=== PATIENT | male | born 1965 | race African-American/Black ===

== ENCOUNTER 2020-04-09 17:12 | Observation (INO) ==
[2020-04-09] MEDS ORDERED: ASPIRIN 325 MG TABLET PO STA (18:27)
[2020-04-09] MEDS ORDERED: METOPROLOL TARTRATE 25 MG TABLET PO STA (18:27)
[2020-04-09 18:45] LABS: Basophils # 0.1 10*3/uL (0.0-0.2); Basophils % 0.7 % (0.0-0.8); Eosinophils # 0.1 10*3/uL (0.0-0.87); Eosinophils % 1.7 % (0.00-10.9); Hematocrit 41.1 VOL% (42.0-52.0); Hemoglobin 13.2 GM/DL (14.0-18.0); Immature Granulocytes % 0.4 %; Immature Granulocytes Absolute 0.03 #; Lymphocytes # 1.5 10*3/uL (1.4-4.0); Lymphocytes % 18.4 % (21.2-54.2); Mean Corpuscular HGB Conc 32.1 GM/DL (32-36); Mean Corpuscular Volume 83.2 FL (87-102); Mean Platelet Volume 9.4 FL (9.6-12.0); Monocytes % 11.4 % (1.7-12.7); Neutrophils % 67.4 % (38.7-73.9); PT Patient Result 11.1 SECS (9.8-11.9); Platelet Count 370 T/CUMM (130-400); Red Blood Count 4.94 MC/CUMM (3.8-5.5); Red Cell Distribution Width 17.1 % (9.3-17.3); White Blood Count 8.4 T/CUMM (4-12)
[2020-04-09 18:53] LABS: Albumin 3.1 G/DL (3.4-5.0); Bilirubin,Total 0.4 MG/DL (0.2-1.0); Calcium 8.7 MG/DL (8.5-10.1); Osmolality,Calculated 290.7 MOS/KG (273-304); Potassium 4.1 MMOL/L (3.5-5.1); Total Protein 6.3 G/DL (6.4-8.3)
[2020-04-09] MEDS ORDERED: ONDANSETRON 4 MG/2 ML VIAL IV PRN (19:59)
[2020-04-09] MEDS ORDERED: ACETAMINOPHEN 325 MG TABLET PO PRN (19:59)
[2020-04-09] MEDS ORDERED: SODIUM CHLORIDE 0.9% 1,000 ML IV SCH (20:00)
[2020-04-09] MEDS ORDERED: ENOXAPARIN 40 MG/0.4 ML SYRINGE SUBCUT SCH (21:00)
[2020-04-09] MEDS: FERROUS SULFATE 325 MG TABLET PO SCH (23:14)
[2020-04-09] MEDS: GABAPENTIN 600 MG TABLET PO SCH (23:14)
[2020-04-09] MEDS: tiZANidine 4 MG TABLET PO SCH (23:15)
[2020-04-10 06:18] LABS: Calcium 8.8 MG/DL (8.5-10.1); Osmolality,Calculated 283.3 MOS/KG (273-304); Potassium 4.2 MMOL/L (3.5-5.1)
[2020-04-10 06:26] LABS: Protein/Creatinine Ratio,Urine 0.1 RATIO
[2020-04-10] MEDS ORDERED: POTASSIUM CHLORIDE 10 MEQ TABLET PO SCH (09:00)
[2020-04-10] MEDS ORDERED: ASCORBIC ACID 500 MG TABLET PO SCH (09:00)
[2020-04-10] MEDS ORDERED: PANTOPRAZOLE 40 MG TABLET PO SCH (09:00)
[2020-04-10] MEDS ORDERED: METOPROLOL TARTRATE 25 MG TABLET PO SCH (09:00)
[2020-04-10] MEDS ORDERED: allopurinoL 100 MG TABLET PO SCH (09:00)
[2020-04-10] MEDS ORDERED: CHOLECALCIFEROL 5,000 UNIT TABLET PO SCH (09:00)
[2020-04-10] MEDS ORDERED: MAGNESIUM OXIDE 400 MG TABLET PO SCH (09:00)
[2020-04-10] MEDS: tiZANidine 4 MG TABLET PO SCH (10:09)
[2020-04-10] MEDS: GABAPENTIN 600 MG TABLET PO SCH (10:11)
[2020-04-10] MEDS: FERROUS SULFATE 325 MG TABLET PO SCH (10:11)
[2020-04-10 12:17] VITALS: BP 107/58
[2020-04-10] MEDS ORDERED: RIVAROXABAN 20 MG TABLET PO SCH (17:00)
== END 2020-04-10 16:06 | disposition home or self-care (01) ==
LOC: EDUNIT# → EDBD → N.ED 17:12 → N.EDINP 17:12 → N.TELEN 04-10 08:34
PROVIDERS: ADMIT Internal Medicine; ATTEND Internal Medicine

== ENCOUNTER 2020-10-23 11:52 | Observation (INO) ==
[2020-10-23] MEDS ORDERED: ADENOSINE 6 MG/2 ML VIAL ONE ×2 (12:11→12:15)
[2020-10-23 12:21] LABS: Basophils # 0.1 10*3/uL (0.0-0.2); Basophils % 1.1 % (0.0-0.8); Eosinophils # 0.1 10*3/uL (0.0-0.87); Eosinophils % 1.9 % (0.00-10.9); Hematocrit 46.4 VOL% (42.0-52.0); Hemoglobin 15.3 GM/DL (14.0-18.0); Immature Granulocytes % 0.1 %; Immature Granulocytes Absolute 0.01 #; Lymphocytes # 1.6 10*3/uL (1.4-4.0); Lymphocytes % 23.1 % (21.2-54.2); Mean Corpuscular Volume 84.7 FL (87-102); Mean Platelet Volume 9.6 FL (9.6-12.0); Monocytes % 12.6 % (1.7-12.7); Neutrophils % 61.2 % (38.7-73.9); Platelet Count 381 T/CUMM (130-400); Red Blood Count 5.48 MC/CUMM (3.8-5.5); Red Cell Distribution Width 16.9 % (9.3-17.3)
[2020-10-23] MEDS ORDERED: ADENOSINE 6 MG/2 ML VIAL IV STA ×2 (12:27)
[2020-10-23 12:46] LABS: Lymphocytes 27 % (20-55); Platelet Estimate Adequate; Segmented Neutrophils 63 % (50-85); Total Cells Counted 100
[2020-10-23 12:48] LABS: Albumin 3.7 G/DL (3.4-5.0); Bilirubin,Total 0.9 MG/DL (0.2-1.0); Calcium 9.4 MG/DL (8.5-10.1); Osmolality,Calculated 275.8 MOS/KG (273-304); Potassium 5.2 MMOL/L (3.5-5.1); Total Protein 8.1 G/DL (6.4-8.2)
[2020-10-23] MEDS ORDERED: AMIODARONE INJ 150 MG in DEXTROSE 5% 100 ML IV ONE (13:14)
[2020-10-23] MEDS ORDERED: ALBUTEROL 2.5 MG/3 ML NEB RESP TX PRN (13:28)
[2020-10-23] MEDS ORDERED: ONDANSETRON 4 MG/2 ML VIAL IV PRN (13:28)
[2020-10-23] MEDS ORDERED: COLCHICINE 0.6 MG CAPSULE PO PRN (13:31)
[2020-10-23 14:02] VITALS: BP 95/70
[2020-10-23] MEDS: LACTATED RINGERS 1,000 ML IV SCH (14:15)
[2020-10-23] MEDS: APIXABAN 5 MG TABLET PO SCH ×2 (14:17→20:32)
[2020-10-23] MEDS: PANTOPRAZOLE 40 MG TABLET PO SCH (14:18)
[2020-10-23] MEDS: AMIODARONE 200 MG TABLET PO SCH ×2 (15:20→20:32)
[2020-10-23] MEDS: METOPROLOL TARTRATE 50 MG TABLET PO SCH (20:32)
[2020-10-23] MEDS ORDERED: ASCORBIC ACID 500 MG TABLET PO SCH ×2 (21:00)
[2020-10-24] MEDS: LACTATED RINGERS 1,000 ML IV SCH (04:00)
[2020-10-24 06:40] LABS: Basophils # 0.1 10*3/uL (0.0-0.2); Basophils % 0.8 % (0.0-0.8); Eosinophils # 0.1 10*3/uL (0.0-0.87); Eosinophils % 1.9 % (0.00-10.9); Hematocrit 40.6 VOL% (42.0-52.0); Hemoglobin 13.3 GM/DL (14.0-18.0); Immature Granulocytes % 0.7 %; Immature Granulocytes Absolute 0.05 #; Lymphocytes # 1.2 10*3/uL (1.4-4.0); Lymphocytes % 16.2 % (21.2-54.2); Mean Corpuscular HGB Conc 32.8 GM/DL (32-36); Mean Corpuscular Volume 85.1 FL (87-102); Mean Platelet Volume 8.9 FL (9.6-12.0); Neutrophils % 70.4 % (38.7-73.9); Platelet Count 283 T/CUMM (130-400); Red Blood Count 4.77 MC/CUMM (3.8-5.5); Red Cell Distribution Width 16.5 % (9.3-17.3); White Blood Count 7.3 T/CUMM (4-12)
[2020-10-24 07:04] LABS: Hypochromasia Slight; Microcytosis Slight; Platelet Estimate Adequate
[2020-10-24 07:16] LABS: Albumin 3.1 G/DL (3.4-5.0); Calcium 8.8 MG/DL (8.5-10.1); Osmolality,Calculated 280.4 MOS/KG (273-304); Thyroid Stimulating Hormone 1.74 uIU/ml (0.358-3.74); Total Protein 6.7 G/DL (6.4-8.2)
[2020-10-24] MEDS: PANTOPRAZOLE 40 MG TABLET PO SCH (08:38)
[2020-10-24] MEDS: APIXABAN 5 MG TABLET PO SCH (08:38)
[2020-10-24] MEDS: AMIODARONE 200 MG TABLET PO SCH (08:38)
[2020-10-24] MEDS: METOPROLOL TARTRATE 50 MG TABLET PO SCH (08:38)
[2020-10-24] MEDS ORDERED: ASCORBIC ACID 500 MG TABLET PO SCH (09:00)
[2020-10-24] MEDS ORDERED: MAGNESIUM OXIDE 400 MG TABLET PO SCH (09:00)
[2020-10-24] MEDS ORDERED: allopurinoL 300 MG TABLET PO SCH (09:00)
== END 2020-10-24 14:52 | disposition home or self-care (01) ==
LOC: N.ED 11:52 → N.CC 13:51 → N.EDINP 13:52 → INTOOBSV 13:52 → N.CC 13:56
PROVIDERS: ADMIT Internal Medicine; ATTEND Internal Medicine

== ENCOUNTER 2022-02-20 19:07 | Observation (INO) ==
[2022-02-20] MEDS ORDERED: SODIUM CHLORIDE 0.9% 1,000 ML IV STA (19:43)
[2022-02-20 19:54] LABS: PT Patient Result 10.8 SECS (10.1-12.1); Partial Thromboplastin Time 35.6 SECS (23.7-32.9)
[2022-02-20 20:05] LABS: Albumin 3.4 G/DL (3.4-5.0); Bilirubin,Total 0.6 MG/DL (0.20-1.00); Osmolality,Calculated 285.1 MOS/KG (273-304); Potassium 3.8 MMOL/L (3.5-5.1); Total Protein 6.8 G/DL (6.4-8.2)
[2022-02-20 20:50] LABS: Basophils # 0.1 10*3/uL (0.0-0.2); Basophils % 0.9 % (0.0-0.8); Eosinophils # 0.3 10*3/uL (0.0-0.87); Eosinophils % 3.6 % (0.00-10.9); Hematocrit 48.3 VOL% (42.0-52.0); Immature Granulocytes % 0.1 %; Immature Granulocytes Absolute 0.01 #; Mean Corpuscular HGB Conc 31.1 GM/DL (32-36); Mean Platelet Volume 9.7 FL (9.6-12.0); Monocytes # 0.9 10*3/uL (0.11-0.8); Monocytes % 12.5 % (1.7-12.7); Neutrophils % 56.9 % (38.7-73.9); Platelet Count 265 T/CUMM (130-400); Red Blood Count 5.49 MC/CUMM (3.8-5.5); Red Cell Distribution Width 17.9 % (9.3-17.3); White Blood Count 7.6 T/CUMM (4-12)
[2022-02-20] MEDS ORDERED: ONDANSETRON 4 MG/2 ML VIAL IV PRN (21:53)
[2022-02-20] MEDS ORDERED: ACETAMINOPHEN 325 MG TABLET PO PRN (21:53)
[2022-02-20] MEDS ORDERED: hydrALAZINE 20 MG/1 ML VIAL IV PRN (21:53)
[2022-02-20] MEDS ORDERED: MORPHINE 2 MG/1 ML SYRINGE IV PRN (21:53)
[2022-02-20] MEDS ORDERED: ASPIRIN 325 MG TABLET PO STA (22:02)
[2022-02-20] MEDS ORDERED: POTASSIUM CHLORIDE 20 MEQ TABLET PO ONE (22:15)
[2022-02-21] MEDS: COLCHICINE 0.6 MG CAPSULE PO SCH ×2 (04:09→10:03)
[2022-02-21 05:38] LABS: Potassium 3.7 MMOL/L (3.5-5.1)
[2022-02-21] MEDS ORDERED: AMIODARONE 200 MG TABLET PO SCH (09:00)
[2022-02-21] MEDS ORDERED: PANTOPRAZOLE 40 MG TABLET PO SCH (09:00)
[2022-02-21] MEDS ORDERED: METOPROLOL TARTRATE 50 MG TABLET PO SCH (09:00)
[2022-02-21] MEDS ORDERED: GABAPENTIN 300 MG CAPSULE PO SCH (09:00)
[2022-02-21] MEDS ORDERED: TORSEMIDE 20 MG TABLET PO SCH (09:00)
[2022-02-21] MEDS ORDERED: ASCORBIC ACID 500 MG TABLET PO SCH (09:00)
[2022-02-21] MEDS ORDERED: allopurinoL 100 MG TABLET PO SCH (09:00)
[2022-02-21] MEDS ORDERED: SPIRONOLACTONE 25 MG TABLET PO SCH (09:00)
[2022-02-21] MEDS ORDERED: APIXABAN 5 MG TABLET PO SCH (09:00)
[2022-02-21] MEDS ORDERED: CHOLECALCIFEROL 5,000 UNIT TABLET PO SCH (09:00)
[2022-02-21] MEDS ORDERED: POTASSIUM CHLORIDE 20 MEQ TABLET PO SCH (09:00)
[2022-02-21] MEDS ORDERED: GLUCAGON 1 MG VIAL IM PRN (09:44)
[2022-02-21] MEDS ORDERED: DEXTROSE 10% 250 ML BAG IV PRN (09:50)
[2022-02-21 14:11] VITALS: BP 126/69
[2022-02-21] MEDS ORDERED: COLCHICINE 0.6 MG CAPSULE PO PRN (20:30)
[2022-02-21] MEDS ORDERED: MAGNESIUM OXIDE 400 MG TABLET PO SCH (21:00)
[2022-02-21] MEDS ORDERED: ATORVASTATIN 20 MG TABLET PO SCH (21:00)
== END 2022-02-21 13:29 | disposition home or self-care (01) ==
LOC: N.ED 19:07 → N.EDINP 19:07
PROVIDERS: ADMIT Family Medicine; ATTEND Family Medicine